=== PATIENT | male | born 2000 | race Caucasian/White ===

== ENCOUNTER 2018-12-31 14:52 | Emergency (ER) | payer OTHER ==
[2018-12-31] MEDS ORDERED: Ketorolac Tromethamine 30 MG/ML VIAL ONE (15:18)
[2018-12-31] MEDS ORDERED: Lorazepam 2 MG/ML VIAL ONE (15:18)
--- NOTE | 2018-12-31 15:49 | RAD ---
PORTABLE AP CHEST X-RAY 12/31/18 HISTORY: Trauma. Patient complains of back pain since last night after lifting weights. FINDINGS: The cardiac silhouette and pulmonary vasculature are within normal limits. The lungs are clear. [place] structures appear intact. IMPRESSION: No acute cardiopulmonary process. POS: [facility]
--- NOTE | 2018-12-31 15:50 | RAD ---
THREE VIEWS THORACIC SPINE: 12/31/18 HISTORY: Back pain after trauma. Patient injured back lifting weights. FINDINGS: Vertebral body heights and intervertebral disc spaces appear to be within normal limits. No fracture or subluxation is seen involving the thoracic spine. IMPRESSION: No acute osseous abnormality involving the thoracic spine. POS: [facility]
== END 2018-12-31 15:55 | disposition home or self-care (01) ==
LOC: ERS 14:52
DX: S29.012A Strain of muscle and tendon of back wall of thorax, initial encounter (principal); X50.0XXA Overexertion from strenuous movement or load, initial encounter
CPT/HCPCS: 71045; 72072; 96372; J1885; J2060